=== PATIENT | female | born 1975 | race Caucasian/White ===

== ENCOUNTER 2020-01-24 17:39 | Emergency (ER) | payer OTHER, SELFPAY ==
[2020-01-24 17:53] VITALS: BP 121/64; PULSE 71; RESP 18; TEMP 36.2; O2SAT 97
--- NOTE | 2020-01-24 18:28 | ED.SKABFB ---
HPI - Skin/Abscess/Foreign Bdy General Chief complaint: Skin/Abscess/Foreign Body Stated complaint: Rash Time Seen by Provider: 01/24/20 18:11 Source: patient, RN notes reviewed and old records reviewed Mode of arrival: ambulatory Limitations: no limitations History of Present Illness HPI narrative: Patient presents today complaining of a rash to her upper back and posterior neck, extending to the scalp x2 weeks. States that rash itches and armstrong. Reports that it continues to worsen since onset. History of eczema and psoriasis. Was last seen at [facility] in February 2019 for similar symptoms. At that time she was given a course of prednisone, which she states did help. She has tried to get into a animal taxonomist, but does not have an appointment until the end of January. MD complaint: rash Related Data Home Medications Medication Instructions Recorded Confirmed valacyclovir [Valtrex] 1,000 mg PO DAILY 01/24/20 01/24/20 Allergies Allergy/AdvReac Type Severity Reaction Status Date / Time naproxen Allergy Mild shortness Verified 01/24/20 18:10 of breath Review of Systems Review of Systems: Narrative: CONSTITUTIONAL: Denies body aches, fever, chills, or sweats. EYES: Denies visual changes, redness, or discharge. ENT: Denies rhinorrhea, congestion, sore throat, or otalgia. CARDIOVASCULAR: Denies chest pain, palpitations, or edema. RESPIRATORY: Denies cough or dyspnea. GASTROINTESTINAL: Denies abdominal pain, nausea, vomiting, or diarrhea. GENITOURINARY: Denies dysuria or hematuria. SKIN: Denies wounds. + Pruritic rash MUSCULOSKELETAL: Denies back pain, joint pain, or myalgia. NEUROLOGIC: Denies headache, numbness, tingling, or weakness. PSYCH: Denies depression or anxiety. [facility] Past Medical History Medical History (Updated 01/24/20 @ 18:34 by Velvet Munoz, [employer] EN[employer]ISE ARCHITECT, ) Eczema Psoriasis Comments At time of signature, I have reviewed and agree with nursing past medical, surgical, social and family history unless otherwise noted. Please see nursing chart for further information. There is no relevant family history pertinent to the presenting complaint Exam Narrative: Exam Narrative: GENERAL: Well-appearing, well-nourished, and in no acute distress. HEAD: Normocephalic, atraumatic. EYES: EOMI. No redness or drainage. Conjunctivae normal. ENT: Mucous membranes pink and moist. NECK: Normal AROM. Large patches of erythematous maculopapular rash to posterior neck, occipital scalp, and bilateral upper back. No induration, crusting, drainage, or other signs of infection. CHEST: No respiratory distress. Clear to auscultation. HEART: Regular rate and rhythm. No murmur appreciated. Normal peripheral pulses. EXTREMITIES: Normal range of motion. No edema. SKIN: Warm, dry, no rash. Capillary refill normal. Normal skin turgor. NEURO: No focal deficits. Alert and oriented x3. Gait steady. PSYCH: Normal affect. No signs of depression or anxiety. Course Vital Signs Vital signs: Vital Signs Temperature 97.2 F L 01/24/20 17:53 Pulse Rate 71 01/24/20 17:53 Respiratory Rate 18 01/24/20 17:53 Blood Pressure 121/64 01/24/20 17:53 Pulse Oximetry 97 01/24/20 17:53 Temperature 97.2 F L 01/24/20 17:53 Pulse Rate 71 01/24/20 17:53 Respiratory Rate 18 01/24/20 17:53 Blood Pressure 121/64 01/24/20 17:53 Pulse Oximetry 97 01/24/20 17:53 Reviewed. Pt has been instructed to follow up with her PCP regarding her elevated blood pressure today. MDM - Skin/Abscess/Foreign Bdy Differential Diagnosis Differential diagnosis: Likely abscess of skin or subcutaneous tissue, dermatophytosis, urticaria, eczema, impetigo, contact dermatitis and other (Psoriasis) Critical Care Time Critical Care Time Critical Care Time: No Discharge Plan Discharge Clinical Impression: Eczema Qualifiers: Eczema type: unspecified Qualified Code(s): L30.9 - Dermatitis, unspecified Patient Disposition:
== END 2020-01-24 18:37 | disposition home or self-care (01) ==
PROVIDERS: Emergency Provider Nurse Practitioner
DX: L30.9 Dermatitis, unspecified (principal)
CPT/HCPCS: 99213; G0463

== ENCOUNTER 2022-02-06 19:03 | Emergency (ER) | payer OTHER, SELFPAY ==
[2022-02-06] VITALS (21 sets, daily range): BP systolic 107–160; BP diastolic 66–92; PULSE 72–89; RESP 14–25; TEMP 36.6; O2SAT 96–100
--- NOTE | ~2022-02-06 | XR_ITS ---
EXAMINATION: XR chest 2V DATE: 02/06/2022 19:31 INDICATION: Left chest pain. TECHNIQUE: Frontal and lateral views of the chest were obtained. COMPARISON: None. FINDINGS: The chest demonstrates clear lungs without pneumonia, pleural effusion, or pneumothorax. Th e heart size is normal. IMPRESSION: 1. No acute cardiopulmonary disease. Reviewed, dictated and finalized at location A.
--- NOTE | 2022-02-06 19:12 | ECG_ITS ---
Measurements Intervals [place] Rate: 79 P: 34 MA: 150 QRS: 17 QRSD: 90 T: 43 QT: 361 QTc: 414 Interpretive Statements SINUS RHYTHM NORMAL ECG NO PREVIOUS ECG AVAILABLE FOR COMPARISON Electronically Signed On 02-07-2022 10:03:11 CDT by Lrary Burnham D.O.
--- NOTE | 2022-02-06 19:22 | PC.NURSE ---
Patient taken to xray.
[2022-02-06 19:39] LABS: Basophils Percent Auto 0.3 % (0.2-1.2); Eosinophils Absolute Auto 0.2 K/mm3 (0-0.3); Eosinophils Percent Auto 2.1 % (0-4.4); Hematocrit 39.8 % (37.0-47.0); Hemoglobin 13.2 g/dL (12.0-15.0); Immature Granulocyte Absolute 0.02 K/mm3 (0.00-0.031); Immature Granulocyte Percent A 0.2 % (0-0.5); Lymphocytes Absolute Auto 3.54 K/mm3 (0.9-3.2); Lymphocytes Percent Auto 36.8 % (18.3-44.2); Mean Corpuscular HGB Conc 33.2 g/dl (32-36); Mean Corpuscular Hemoglobin 29.3 pg (26-34); Mean Corpuscular Volume 88.2 fl (80-100); Mean Platelet Volume 9.9 fl (7.4-10.4); Monocytes Absolute Auto 0.4 K/mm3 (0.1-0.6); Neutrophils Absolute Auto 5.5 K/mm3 (1.3-6.7); Neutrophils Percent Auto 56.6 % (45.5-73.1); Platelet Count Result 273 k/mm3 (150-375); Red Blood Count 4.51 M/mm3 (4.2-5.4); Red Cell Distribution Width 13.9 % (11.5-14.5); White Blood Count 9.6 K/mm3 (4.5-10.0)
[2022-02-06 19:48] LABS: Alanine Aminotransferase 19 U/L (6-35); Albumin Level 4.4 g/dL (3.5-5.1); Alkaline Phosphatase 91 U/L (38-126); Anion Gap 8 mmol/L (8-16); Aspartate Amino Transferase 24 U/L (14-36); Bilirubin,Total 0.5 mg/dL (0.2-1.3); Blood Urea Nitrogen 12 mg/dL (7-17); Calcium 9.9 mg/dL (8.4-10.2); Carbon Dioxide 31 mmol/L (22-30); Chloride 100 mmol/L (98-107); Estimated CRCL calculation 112 ml/min; Estimated Glomerular Filt Rate > 60; Glucose 91 mg/dL (65-110); Lipase 165 U/L (23-300); Potassium 3.7 mmol/L (3.4-5.0); Sodium 139 mmol/L (137-145)
--- NOTE | 2022-02-06 19:55 | ED.GENADULT ---
HPI - General Adult General Chief complaint: Chest Pain Stated complaint: chest tightness and sob for a few days Time Seen by Provider: 02/06/22 19:19 History of Present Illness HPI narrative: Patient is a 46-year-old female who presents to the emergency department with chief complaint of chest pain. The patient reports over the last several days she has had a tightness and fullness sensation in her chest. Patient states he is also noticed that whenever she is taking a breath that it does not feel as though she is getting a good deep breath. Patient states that she is also felt exhausted and tired and did have a couple episodes of some loose stool. Patient reports that several days ago she had a little blood in her stool as well. Related Data Home Medications Medication Instructions Recorded Confirmed valacyclovir 1 gram tablet 1,000 mg PO DAILY 01/24/20 01/24/20 (Valtrex) Allergies Allergy/AdvReac Type Severity Reaction Status Date / Time naproxen Allergy Mild shortness Verified 02/06/22 20:53 of breath Review of Systems Review of Systems: A 10 system review of systems was completed on the patient and is negative except for what is stated in the HPI. Nursing and ancillary documentation was reviewed. [facility], [facility] Past Medical History Medical History Eczema Psoriasis Exam Narrative: GENERAL: Well-appearing, well-nourished, and in no acute distress. HEAD: Normocephalic, atraumatic. EYES: PERRLA and EOMI. ENT: Nares clear, no rhinorrhea or epistaxis. Mucous membranes moist. NECK: Supple. CHEST: Clear to auscultation. No respiratory distress. HEART: Regular rate and rhythm. No murmur heard. Normal peripheral pulses. ABDOMEN: Soft, nontender, nondistended, normal active bowel sounds. EXTREMITIES: Normal range of motion. No edema. SKIN: Warm, dry, no rash. NEURO: No focal deficits. Alert and oriented x3. PSYCH: Normal mood and affect. Course Course Emergency Course: EKG is sinus rhythm rate of [address] elevation or ST depression Vital Signs Vital signs: Vital Signs Temperature 36.6 C 02/06/22 19:09 Pulse Rate 88 02/06/22 19:09 Respiratory Rate 14 02/06/22 19:09 Blood Pressure 143/92 H 02/06/22 19:09 Pulse Oximetry 100 02/06/22 19:09 Oxygen Delivery Room Air 02/06/22 19:09 Temperature 36.6 C 02/06/22 19:09 Pulse Rate 74 02/06/22 20:52 Respiratory Rate 14 02/06/22 20:52 Blood Pressure 125/76 02/06/22 20:52 Pulse Oximetry 100 02/06/22 20:52 Oxygen Delivery Room Air 02/06/22 19:20 Medical Decision Making Vital Signs Vital Signs: Vital Signs Temperature 36.6 C 02/06/22 19:09 Pulse Rate 88 02/06/22 19:09 Respiratory Rate 14 02/06/22 19:09 Blood Pressure 143/92 H 02/06/22 19:09 Pulse Oximetry 100 02/06/22 19:09 Oxygen Delivery Room Air 02/06/22 19:09 Temperature 36.6 C 02/06/22 19:09 Pulse Rate 74 02/06/22 20:52 Respiratory Rate 14 02/06/22 20:52 Blood Pressure 125/76 02/06/22 20:52 Pulse Oximetry 100 02/06/22 20:52 Oxygen Delivery Room Air 02/06/22 19:20 Lab Data Result diagrams: 02/06/22 19:33 02/06/22 19:33 Labs: Lab Results 02/06/22 02/06/22 02/06/22 Range/Units 19:33 19:33 19:33 WBC 9.6 (4.5-10.0) K/mm3 RBC 4.51 (4.2-5.4) M/mm3 Hgb 13.2 (12.0-15.0) g/dL Hct 39.8 (37.0-47.0) % MCV 88.2 (80-100) fl MCH 29.3 (26-34) pg MCHC 33.2 (32-36) g/dl RDW 13.9 (11.5-14.5) % Plt Count 273 (150-375) k/mm3 MPV 9.9 (7.4-10.4) fl Immature Gran % (Auto) 0.2 (0-0.5) % Neut % (Auto) 56.6 (45.5-73.1) % Lymph % (Auto) 36.8 (18.3-44.2) % Jennings % (Auto) 4.0 (2.6-8.5) % Eos % (Auto) 2.1 (0-4.4) % Baso % (Auto) 0.3 (0.2-1.2) % Lymph # (Auto) 3.54 H (0.9-3.2) K/mm3 Jennings # (Auto) 0.4 (0.1-0.6) K/mm3 Eos # (Auto) 0.2 (0-0.3)
[2022-02-06 19:56] LABS: Prothrombin Time 12.4 Seconds (11.1-14.7)
--- NOTE | 2022-02-06 19:56 | PC.NURSE ---
Called lab to add on BNP, spoke with Hansa.
[2022-02-06 19:59] LABS: Troponin I < 0.012 ng/mL (0.000-0.034)
[2022-02-06 20:19] LABS: NT Pro B Type Natriuretic Pept 14 pg/mL (5-100)
[2022-02-06 20:42] LABS: SARS-CoV-2 RNA PCR Negative
--- NOTE | 2022-02-06 21:20 | PC.NURSE ---
Per VORB per ERP, draw second trop at this time. ED track laborer in room drawing delta trop.
[2022-02-06 21:50] LABS: Troponin I < 0.012 ng/mL (0.000-0.034)
== END 2022-02-06 22:23 | disposition home or self-care (01) ==
PROVIDERS: Emergency Medicine; Emergency Provider Emergency Medicine
DX: R07.89 Other chest pain (principal); Z20.822 Contact with and (suspected) exposure to COVID-19
CPT/HCPCS: 36415; 71046; 80053; 83690; 83880; 84484; 85025; 85610; 85730; 93005; 99284; C9803; U0003; U0005

== ENCOUNTER 2022-09-18 18:05 | Emergency (ER) | payer OTHER, SELFPAY ==
[2022-09-18 18:21] VITALS: BP 139/83; PULSE 79; RESP 20; TEMP 36.7; O2SAT 100
--- NOTE | 2022-09-18 18:30 | ED.EAR ---
HPI - Ear Problem General Chief complaint: Ear Stated complaint: Left Ear Irritation Time Seen by Provider: 09/18/22 18:21 Source: patient and RN notes reviewed Mode of arrival: ambulatory Limitations: no limitations History of Present Illness HPI Narrative: Patient presents today complaining of a 2 day history of left ear pain that worsened since yesterday. Symptoms include itchiness and pain in the canal as well as swelling in the canal and decreased hearing. She reports pain increases with touching of the tragus. She currently rates her pain 6/10 and has been taking ibuprofen and Zyrtec without relief. Related Data Home Medications Medication Instructions Recorded Confirmed valacyclovir 1 gram tablet 1,000 mg PO DAILY 01/24/20 09/18/22 (Valtrex) Allergies Allergy/AdvReac Type Severity Reaction Status Date / Time naproxen Allergy Mild shortness Verified 09/18/22 18:20 of breath Review of Systems Review of Systems: CONSTITUTIONAL: Denies body aches, fever, chills, or sweats. EYES: Denies visual changes, redness, or discharge. ENT: Denies rhinorrhea, congestion, sore throat. + left ear pain CARDIOVASCULAR: Denies chest pain, palpitations, or edema. RESPIRATORY: Denies cough or dyspnea. GASTROINTESTINAL: Denies abdominal pain, nausea, vomiting, or diarrhea. GENITOURINARY: Denies dysuria or hematuria. SKIN: Denies rash, itching, or wounds. MUSCULOSKELETAL: Denies back pain, joint pain, or myalgia. NEUROLOGIC: Denies headache, numbness, tingling, or weakness. PSYCH: Denies depression or anxiety. [facility] Past Medical History Medical History Eczema Psoriasis Comments At time of signature, I have reviewed and agree with nursing past medical, surgical, social and family history unless otherwise noted. Please see nursing chart for further information. There is no relevant family history pertinent to the presenting complaint Exam Narrative: GENERAL: Well-appearing, well-nourished, and in no acute distress. HEAD: Normocephalic, atraumatic. EYES: EOMI. No redness or drainage. Conjunctivae normal. ENT: Mucous membranes pink and moist. TMs normal bilaterally. Moderate swelling of the left ear canal with tragal tenderness. No movement tenderness. She has some eczema patches pre and postauricular, which is baseline for her. NECK: Normal AROM. CHEST: No respiratory distress. EXTREMITIES: Normal range of motion. No edema. SKIN: Warm, dry, no rash. Capillary refill normal. Normal skin turgor. NEURO: No focal deficits. Alert and oriented x3. Gait steady. PSYCH: Normal affect. No signs of depression or anxiety. Course Course Level of Care: Express Care Visit Vital Signs Vital signs: Vital Signs Temperature 98.1 F 09/18/22 18:21 Pulse Rate 79 09/18/22 18:21 Respiratory Rate 20 09/18/22 18:21 Blood Pressure 139/83 09/18/22 18:21 Pulse Oximetry 100 09/18/22 18:21 Oxygen Delivery Room Air 09/18/22 18:21 Temperature 98.1 F 09/18/22 18:21 Pulse Rate 79 09/18/22 18:21 Respiratory Rate 20 09/18/22 18:21 Blood Pressure 139/83 09/18/22 18:21 Pulse Oximetry 100 09/18/22 18:21 Oxygen Delivery Room Air 09/18/22 18:21 Reviewed. Pt has been instructed to follow up with her PCP regarding her elevated blood pressure today. Medical Decision Making MDM Narrative Medical decision making narrative: Symptoms and exam consistent with otitis externa. Prescription for Ciprodex sent to pharmacy. Anticipatory guidance given. Differential Diagnosis Differential Diagnosis: Otitis media, otitis externa, ruptured TM, serous otitis, eustachian tube dysfunction, cerumen impaction Vital Signs Vital Signs: Vital Signs Temperature 98.1 F 09/18/22 18:21 Pulse Rate 79 09/18/22 18:21 Respiratory Rate 20 09/18/22 18:21 Blood Pressure 139/83 09/18/22 18:21 Pulse Oximetry 100 09/18/22 18:21
== END 2022-09-18 18:31 | disposition home or self-care (01) ==
PROVIDERS: Emergency Provider Nurse Practitioner
DX: H60.92 Unspecified otitis externa, left ear (principal); L40.9 Psoriasis, unspecified
CPT/HCPCS: 99213; G0463

== ENCOUNTER 2022-09-29 12:33 | Emergency (ER) | payer OTHER, SELFPAY ==
--- NOTE | 2022-09-29 12:44 | ED.URI ---
HPI - URI/Sore Throat General Chief Complaint: Upper Respiratory Infection Stated Complaint: congestion Time Seen by Provider: 09/29/22 12:49 History of Present Illness HPI Narrative: 47-year-old female presented for complaint of sore throat, sinus congestion and pressure worsening over the past 3 days. Endorses cough is productive at times. She has been taking [id number] medication without relief. Also states she took 1 dose of antihistamine without any change in symptoms. She denies shortness of breath, wheezing, nausea, vomiting, fevers or chills. Denies sick contacts. Related Data Home Medications Medication Instructions Recorded Confirmed valacyclovir 1 gram tablet 1,000 mg PO DAILY 09/29/22 09/29/22 Allergies Allergy/AdvReac Type Severity Reaction Status Date / Time naproxen AdvReac Intermediate shortness Verified 09/29/22 12:39 of breath Review of Systems Review of Systems: CONSTITUTIONAL: Denies body aches, fever, chills, or sweats. EYES: Denies visual changes, redness, or discharge. ENT: Reports rhinorrhea, congestion, sore throat CARDIOVASCULAR: Denies chest pain, palpitations, or edema. RESPIRATORY: Denies dyspnea. GASTROINTESTINAL: Denies abdominal pain, nausea, vomiting, or diarrhea. SKIN: Denies rash, itching, or wounds. MUSCULOSKELETAL: Denies back pain, joint pain, or myalgia. [facility] Past Medical History Medical History Eczema Psoriasis Exam Narrative: GENERAL: Mildly ill-appearing, no acute distress. EYES: conjunctivae clear ENT: Mucous membranes moist. Nasal congestion. TM pearly rios with normal light reflex bilaterally; no tragal tenderness. Oropharynx erythematous without lesions. Tonsils without swelling or exudate. No drooling, no hoarseness, no trismus, uvula midline. No tripod positioning, hot potato voice, or soft palate swelling. NECK: Supple. No lymphadenopathy CHEST: Clear to auscultation, breath sounds equal. HEART: Regular rate and rhythm. No murmur heard. SKIN: Warm, dry, no rash. NEURO: Alert and oriented x3. Course Course Emergency Course: Patient is aware of diagnosis, understands and agrees to treatment plan. Anticipatory guidance given. Patient agrees to follow-up as directed and is aware of reasons to seek care at the emergency department. Portions of this record may have been created with voice recognition software Level of Care: Express Care Visit MDM - URI/Sore Throat MDM Narrative Medical decision making narrative: strep result reviewed with pt. Advised supportive treatments. Patient is appropriate for outpatient treatment and follow-up. Differential Diagnosis Differential diagnosis: Likely upper respiratory infection, viral infection and pharyngitis Discharge Plan Discharge Clinical Impression: Allergic rhinitis Patient Disposition: Home, Self-Care Condition: Stable Instructions: Upper Respiratory Infection (ED) Additional Instructions: Rapid strep swab was negative today You will be notified in a few days if the culture comes back positive for strep, and appropriate antibiotics will be called in at that time. if symptoms are due to a viral illness, it is not treated with antibiotics. Viral symptoms can be present for up to 10-14 days. Recommend Flonase spray and Zyrtec for sinus congestion Cough syrup may cause drowsiness; avoid driving or take it at night time. Tylenol every 8 hours as needed for pain/fever Soft foods, cool liquids, warm tea. Gargle with warm saltwater twice a day. Chloraseptic spray and throat lozenges. Rest and stay hydrated. Humidified air. --Follow up with your PCP --Go to the ER immediately if you cannot swallow your saliva, trouble breathing/wheezing, throat swelling, pain is persistent and severe Prescriptions: No Action valacyclovir 1 gram tablet 1,000 mg PO DAILY Follow-up/Referrals: PHYSICIAN,ON SHERRELL
[2022-09-29 12:47] VITALS: BP 110/72; PULSE 88; RESP 16; TEMP 35.9; O2SAT 97
== END 2022-09-29 13:12 | disposition home or self-care (01) ==
PROVIDERS: Emergency Provider Nurse Practitioner Family
DX: J30.9 Allergic rhinitis, unspecified (principal)
CPT/HCPCS: 87081; 87880; 99213; G0463

== ENCOUNTER 2024-09-21 16:54 | Emergency (ER) | payer OTHER, SELFPAY ==
--- OUTSIDE RECORDS SUMMARY | 2024-09-21 16:58 | XMS_ITS | Encounter Summary ---
Author Organization [facility] Address [address] [place] [id number] Care Team Providers Care Spring Forger Name Role Phone None, Provider Primary Care Provider Charmaine Steel NP Primary Care Provider [phone] Encounter Details Date Type Department Care Team (Late st Contact Info) Description 09/04/[address] [facility] CONVERSION [id number] [place] [address] , Generic Conversion, Social History Tobacco Use Types Packs/Day Years Used Date Smoking Tobacco: Never Assessed Comments Unknown Sex and Gender Information Value Date Recorded Sex Assigned at Not on file Legal Sex Female 8:24 PM CDT Gender Identity Not on file Sexual Orientation Not on file documented as of this encounter Plan of Treatment Not on file documented as of this encounter Visit Diagnoses Not on filedocumented in this encounter Care Teams Spring Forger Relationship Specialty Start Date End Date None, Provider, PCP - General 02/04/19 07/24/20 Charmaine Cyr, TONY [address] [place] [address] PCP - General NURSE PRACTITIONER 07/25/20 documented as of this encounter
--- OUTSIDE RECORDS SUMMARY | 2024-09-21 16:58 | XMS_ITS | Data Portability ---
Author Organization [facility] [place] Address [address] [place] [address] Assessment No assessment recorded. Plan of Treatment Reminders Order Date Submit Date Provider Last Modified By Organization Details Last Modified Time Details Appointments None recorded. Lab None recorded. Referral None recorded. Procedures None recorded. Surgeries None recorded. Imaging None recorded. Medication Orders fluconazole 150 mg tablet [address] [facility] [address] [place], [address], 13:08:13 nystatin-tr iamcinolone 100,000 unit/gram-0 .1 % topical ointment [address] [facility] [address] [place], [address], 13:08:33 Patient TargetsNo targets recorded. Patient InstructionsNo instructions recorded. Reason for Referral None Reported. Results Created Date Observation Date Name Description Value Unit Range Abnormal Flag Note LastModifiedBy Organization Detail LastModifiedTime 01/05/2001/05/2024 VAGIN ITIS/ VAGIN OSIS, DNA PROBE timothy sp. detection, direct probe Negati ve negati ve Not Available [facility] (Lab) [address], [place], [address], 01/06/2024 13:10:17 01/05/20 24 01/05/2024 VAGIN ITIS/ VAGIN OSIS, DNA PROBE gardnerella vag. detection, direct probe Negati ve negati ve Not Available [facility] (Lab) [address] [facility], [place], [address], 01/06/2024 13:10:17 01/05/20 24 01/05/2024 VAGIN ITIS/ VAGIN OSIS, DNA PROBE trichomonas vag. detection, direct probe Negati ve negati ve Not Available [facility] (Lab) [address] [facility], [place], [address], 01/06/2024 13:10:17 01/05/20 24 01/05/2024 CT/GC AND TRICH OMONA S VAGIN DENNY (RRNA ), SWAB chlamydia trachomatis, PCR Negati ve negati ve Not Available [facility] (Lab) [address] [facility], [place], [address], 01/06/2024 13:10:17 01/05/20 24 01/05/2024 CT/GC AND TRICH OMONA S VAGIN DENNY (RRNA ), SWAB neisseria gonorrhoeae, PCR Negati ve negati ve Not Available [facility] (Lab) [address] [facility], [place], [address], 01/06/2024 13:10:17 01/05/20 24 01/05/2024 CT/GC AND TRICH OMONA S VAGIN DENNY (RRNA ), SWAB trichomonas vaginalis ribosomal RNA (rrna) Negati ve negati ve Not Available [facility] (Lab) [address] [facility], [place], [address], 01/06/2024 13:10:17 Result Notes None recorded. Procedures Surgical History Date Name Laterality Status Provider Name and Address Organization Details Recorded Time 09/09/19 24 Date of Last Mammogram completed Irma Miles [facility] 03/07/2024 12:20:41 05/24/19 19 Hysteroscopy completed [facility] 01/05/2024 17:20:53 05/24/18 80 hernia repair completed [facility] 01/05/2024 17:20:41 Imaging Results None recorded. Procedure Notes None recorded. Medical Equipment None Reported. Allergies Allergen ID Allergen Name Allergen Category Reaction Reaction Severity Criticality Documentation Date Start Date Code Code System Note Provider Name and Address Organization Details Recorded Time 74506 Non-stero idal anti-infl ammatory agent (product) medicatio n respirato ry distress moderate Not available 01/05/2024 57484 005 SNOMED Emerita Arechiga [facility] 17:13:27 Medications Name Sig Start Date Stop Date Status Note LastModified by Organization Details LastModified Time atorvastati n 20 mg tablet TAKE 1 TABLET BY MOUTH NIGHTLY AT BEDTIME active Not Available Not Available No t Available fluconazole 150 mg tablet TAKE ONE TABLET BY MOUTH NOW AND THEN REPEAT DOSE IN 72 HOURS 02/27 completed Not Available Not Available Not Available valacyclovi r 1 gram tablet TAKE 1 TABLET BY MOUTH ONCE DAILY active Not Available Not Available No t Available nystatin-tr iamcinolone 100,000 unit/gram-0 .1 % topical ointment APPLY TO THE AFFECTED AREA(S) TWICE DAILY FOR 7 DAYS 02/27 completed Not Available Not Available Not Available omeprazole 20 mg capsule,del ayed release TAKE 1 CAPSULE BY MOUTH ONCE DAILY active Not Available Not Available No t Available epinephrine 0.3 mg/0.3 mL injection, auto-inject or USE DIRECTED active Not Available Not Available No t Available atorvastati n 01/04 completed Not Available Not Available Not Available omeprazole 01/04 completed Not Available Not Available Not Available cholecalcif twan (vitamin D3) 1,250 mcg (50,000 unit) capsule TAKE 1 CAPSULE BY MOUTH ONCE A WEEK active Not Available Not Available No t Available sodium,pota ssium,mag sulfates 17.5 gram-3.13 gram-1.6 gram oral soln TAKE 177ML BY MOUTH EVERY 12 HOURS FOR ONE DAY. TAKE DIRECTED IN THE INSTRUCTI ONS 02/27 completed Not Available Not Available Not Available Vitals Date Recorded Body weight Body mass index (BMI) Body height Systolic blood pressure Diastolic blood pressure Provider Name and Address Organization Details Last Updated DateTime 01/05/2024 35620.73 g 37.6 kg/m2 162.56 cm 117 mm[Hg] 74 mm[Hg] Emerita Arechiga [facility] 17:13:18 Social History Question Answer Notes LastModified by Organizat ion Details LastModified Time Tobacco Smoking Status Never Smoker Emerita Arechiga null, [facility] 01/05/2024 17:20:15 What Is Your Level Of Alcohol Consumption? Occasional Information not available 01/05/2024 In The 14 Days Before Symptom Onset, Have You Had Close Contact With A Laboratory-confirm ed COVID-19 While That Case Was Ill? No Information n ot available 01/05/2024 In The 14 Days Before Symptom Onset, Have You Had Close Contact With A Person Who Is Under Investigation For COVID-19 While That Person Was Ill? No Information not available 01/05/2024 Have You Been To An Area Known To Be High Risk For COVID-19? No Information not available 01/05/2024 Sex: Unknown Functional Status None recorded. Mental Status None recorded. Family History Relationship Description Onset Age of this Age Resolved Age Notes LastModified by Organization Details LastModified Time Mother Asthma Not available 0 01/05/2024 17:24:54 Mother Malignant tumor of cervix Not available 2023 17:25:09 Mother Diabetes mellitus Not available 2023 17:25:18 Mother Hypercholest erolemia Not available 2023 17:25:31 Mother Mental disorder Not available 2023 17:25:59 Father Heart disease Not available 2023 17:26:10 Father Hepatoptosis Not avail able 01/05/2024 17:26:52 Father Hypercholest erolemia Not available 2023 17:26:58 Father Hypertensive disorder Not available 2023 17:27:07 Father Mental disorder Not available 2023 17:27:22 Sister Mental disorder Not available 2023 17:27:26 Sister Asthma Not available 0 01/05/2024 17:27:35 Sister Cyst of ovary [email or web address] Not available 2023 17:28:00 Sister Malignant neoplasm of ovary [email or web address] Not available 2023 17:28:13 Medical History Condition Response Anxiety Disorder Y Anemia Y High Cholesterol Y Depression/ depression Y History of STI Y Psychiatric Illness Y Gynecological History Statement/Question Response Abnormal Pap Y Date of Last Mammogram 09/09/2023 Date of LMP 09/21/2018 On BCP's at Conception? N STIs/STDs Y HPV Vaccine N Colposcopy Current Control Method Abstinence Date of Last Colonoscopy Sexually Active? N Date of DEXA bone scan Age of first menstrual cycle 12 Date of Last Pap Smear Sexual Problems? N Obstetrics History GPAL:G 2 P 0 0 0 2 Type Value Living 2 Total 2 Past Encounters Encounter ID Performer Location Encounter Start Date Encounter Closed Date Diagnosis/Indication Diagnosis SNOMED-CT Code Diagnosis ICD10 Code Diagnosis Note [id number] [facility] [address] [address] 01/05/2024 16:51:38 01/05/2024 17:49:57 Vaginitis 17446810 N76.0 vaginitis panel sentgc/ct/ trich testing sentvulvar care guidelines discussed (d/c use of scented soaps/prod ucts/wipes )rx sent for yeast, r/b/a reviewedqu estions answeredRT C for WWE Time spent in visit is a total of 20 mins with at least 50% of visit consisting of counseling and review of plan of care. Vulval irritation 641334 003 N90.89 Venereal d isease screening 182912922 Z11.3 Health Concerns Section Related Observation LastModified by Organization Detai ls LastModified Time None Recorded Concern Status LastModified by Organization Details LastModified Time None Recorded Advance Directives Directive None Recorded Payers Encounter Date Sequence Insurance Name Policy Number Policy Guevara Covered Member ID Guevara Member ID Guarantor Name 01/05/2024 1 [facility] [id number] Comfort Rodriguez [id number] Comfort Rodriguez Notes Date Note Type Note Provider Name and Address Organization Details Recorded Time 01/05/2024 text/html 48yopresents for evaluation of vulvar itching/irritati onsymptoms present x 1 monthitching/red ness uses baby wipes and scented products postmenopausalno t SA x 1 yr h/o HSV [place] Burgos [address], [place], [address], [place] [facility] 01/05/2024 17:44:57 OBGyn Episode Ob Episode Information Episode Created Date Number of Fetuses Patient Bloodtype Patient rh Status Prepregnancy Weight lbs Domestic Partner Domestic Partner Phone Father Name Test Lead Application Testing Status 01/05/20 24 1 CLOSED Fetus Data First Name Last Name Admitted to NICU Weight (g) Sex Living Outcome Pediatric Complications Fetus ID Race Codes Race Delivery Type F Full Term [id number] Vaginal Delivery Heber Calculation Initial Heber Date Initial Exam Date Initial Exam Provider Initial Ultrasound Date Last Menstrual Period Date Ultra Sound Weeks Gestation 0 Eighteen To Twenty Week Heber Update Ultra Sound Date Fundal Height At Umbil Quickening Date Ultra Sound Latest Weeks Gestation Final Heber Confirmed By Final Heber Confirmed Date Final Heber Date Ultra Sound Latest Days Gestation 0 0 Menstrual History Last Menstrual Date Menses Monthly On Bcp Conception Prior Menses Frequency Hcg Plus Date Menarche Onset Age Delivery Information Delivery Date Delivery Type Labor Anesthesia Weeks Gestation Incision Type Labor Labor Length Hrs Delivered By Post Complications Tubal Sterilization Discharge Date Comments 4 Discharge Information Feeding Method Contraceptive Method Maternal HG B and HCT Levels Ob Episode Information Episode Created Date Number of Fetuses Patient Bloodtype Patient rh Status Prepregnancy Weight lbs Domestic Partner Domestic Partner Phone Father Name Test Lead Application Testing Status 01/05/20 24 1 CLOSED Fetus Data First Name Last Name Admitted to NICU Weight (g) Sex Living Outcome Pediatric Complications Fetus ID Race Codes Race Delivery Type M Full Term [id number] Vaginal Delivery Heber Calculation Initial Heber Date Initial Exam Date Initial Exam Provider Initial Ultrasound Date Last Menstrual Period Date Ultra Sound Weeks Gestation 0 Eighteen To Twenty Week Heber Update Ultra Sound Date Fundal Height At Umbil Quickening Date Ultra Sound Latest Weeks Gestation Final Heber Confirmed By Final Heber Confirmed Date Final Heber Date Ultra Sound Latest Days Gestation 0 0 Menstrual History Last Menstrual Date Menses Monthly On Bcp Conception Prior Menses Frequency Hcg Plus Date Menarche Onset Age Delivery Information Delivery Date Delivery Type Labor Anesthesia Weeks Gestation Incision Type Labor Labor Length Hrs Delivered By Post Complications Tubal Sterilization Discharge Date Comments 9 Discharge Information Feeding Method Contraceptive Method Maternal HG B and HCT Levels
--- OUTSIDE RECORDS SUMMARY | 2024-09-21 16:58 | XMS_ITS | Clinical Summary ---
Author Organization [facility] Address [address] [place] [address] Care Team Providers Care Trolley Worker Name Role Phone Charmaine Cyr DUST BRUSH ASSEMBLER Primary Care Provider [phone] Allergies Active Allergy Reactions Criticality Noted Date Comments Naproxen Shortness of Breath High 02/04/2019 Nuts Other (see comment) 08/20/2023 Tingling in lips and scratchy throat Medications EPINEPHrine (EPIPEN 2-FÁTIMA) 0.3 MG/0.3ML injectionIndicat ions:Peanut allergy Inject 0.3 mLs (0.3 mg total) into the muscle as needed for Anaphylaxis. 1 each 08/20/2023 Active valACYclovir (VALTREX) 1 g tabletIndication s:Genital herpes simplex, unspecified site Take 1 tablet by mouth once daily 90 tablet 05/31/2024 Active atorvastatin (LIPITOR) 20 MG tabletIndication s:Hypertriglycer idemia TAKE 1 TABLET BY MOUTH NIGHTLY AT BEDTIME 90 tablet 07/12/2024 Active omeprazole (PRILOSEC) 20 MG capsuleIndicatio ns:Gastroesophag eal reflux disease, unspecified whether esophagitis present Take 1 capsule by mouth once daily 90 capsule 07/12/2024 Active Active Problems Problem Noted Date Diagnosed Date Family hx of colon cancer 10/08/2023 Change in bowel habit 10/08/2023 Gastroesophageal reflux dise ase, unspecified whether esophagitis present 08/20/2023 Peanut allergy 08/20/2023 Chronic bilateral low back pain with bilateral s ciatica 08/09/2023 Abdominal bloating 08/09/2023 Urge incontinence 08/09/2023 Hx of iron deficiency anemia 08/09/2023 Vitamin D deficiency 08/24/2020 Hypertriglyceridemia 08/24/2020 Dermatitis 07/31/2020 Fatigue 12/08/2016 Depression 07/31/2015 Numbness and tingling 07/31/2015 Resolved Problems Problem Noted Date Diagnosed Date Resolved Date Hot flashes 07/31/2020 08/24/2020 Immunizations Immunization Administration Dates Next Due PFIZER COVID-19 (ORIGINAL FO RMULATION, PURPLE CAP) mRNA, LNP-S, PF, 30 MCG/0.3 ML DOSE 06/09/2021,08/22/2020,08/01/2020 Family History Medical History Relation Comments COPD Father Cancer Father Prostate & bladd er Heart Disease Father Hypertension Father Breast Cancer Maternal Aunt Cancer Maternal Aunt Breast, bone & l anupam cancer suicide Maternal Grandfather Breast Cancer Maternal Grandmother Cancer Maternal Grandmother Breast & reyna ng Stroke Maternal Grandmother Asthma Mother Cancer Mother Cervical cancer Depression Mother Diabetes Mother Kidney Disease Mother Mental Health Mother Psychiatry Mother Cancer Paternal Aunt Breast Cancer Paternal Grandfather Prostate Heart Disease Paternal Grandfather Stroke Paternal Grandfather Cancer Paternal Grandmother Colon Colon Cancer Paternal Grandmother Depression Sister Depression Son Relation Status Comments Father Maternal Aunt Maternal Grandfather Maternal Grandmother Mother Paternal Aunt Paternal Grandfather Paternal Grandmother Sister Son Social History Tobacco Use Types Packs/Day Years Used Date Smoking Tobacco: Never Passive Smoke Exposure: Past Smokeless Tobacco: Never Tobacco Cessation:Counseling Given: No Comments:Grew up in house full of smokers but never smoked Alcohol Use Standard Drinks/Week Comments Not Currently 0 (1 standard drink = 0.6 oz pure alcohol) Only social drinker maybe a couplle times a month PHQ-2 Answer Date Recorded Patient Health Questionnaire-2 Score 0 10/08/2023 Comments No Sex and Gender Information Value Date Recorded Sex Assigned at Not on file Legal Sex Female 8:24 PM CDT Gender Identity Not on file Sexual Orientation Not on file Last Filed Vital Signs Vital Sign Reading Time Taken Comments Blood Pressure 122/63 12/01/2023 10:30 AM CDT Pulse 55 12/01/2023 10:15 AM CDT Temperature 36.9 C (98.4 F) 12/01/2023 9:09 AM CDT Respiratory Rate 16 12/01/2023 10:30 AM CDT Oxygen Saturation 98% 12/01/2023 10:30 AM CDT Inhaled Oxygen Concentration - - Weight 97.5 kg (215 lb) 12/01/2023 9:09 AM CDT Height 160 cm (5' 3 ) 12/01/2023 9:09 AM CDT Body Mass Index 38.09 12/01/2023 9:09 AM CDT Plan of Treatment Health Maintenance Due Date Last Done Comments Cervical Cancer Screening Pa p Smear (Age 30 to 64) Every 3 Years 1973 DTaP, Tdap and Td Vaccines ( 1 - Tdap) 02/23/1992 Hepatitis B Vaccines (1 of 3 - 19+ 3-dose series) 02/23/1992 Cervical Cancer Screening Pa p with HPV Testing (Age 30 to 64) Every 5 Years 2003 Cervical Cancer Screening wi th HPV 2003 Pneumococcal Vaccine: 50+ Years (1 of 1 - PCV) 2023 Zoster Vaccines (1 of 2) 2023 COVID-19 Vaccine (4 - 2023-2 5 season) 2024 06/09/2021, 08/22/2020, 08/01/2020 PHQ-2 (Physician Pokagon) 05/24/2024 10/08/2023 Annual Physical 08/08/2024 08/09/2023, 07/30/2020, 07/30/2020 Mammogram Screening 08/19/2025 08/20/2023 Colorectal Cancer Screening Colonoscopy (10 Years) 11/30/2033 12/01/2023 Hepatitis C Completed 08/08/2020 Meningococcal B Vaccine Aged Out No l onger eligible based on patient's age to complete this topic Meningococcal Vaccine Aged Out No zulay marv eligible based on patient's age to complete this topic RSV Immunizations Under 20 Months Aged Out No longer eligible b ased on patient's age to complete this topic Medical Devices Implanted Type Area Rivet Spinner Device Identifier Shelf Expiration Date Model / Serial / Lot Clip Hemostatic Endoscopic Instinct Plus - [id number] Implanted:Qty: 2 on 12/01/2023 by Dick Saenz MD at [facility] Clip Implant N/A: Colon [employer] 10/14/2025 [id number] / / [id number] Clip Hemostatic Endoscopic Instinct Plus - [id number] Implanted:Qty: 1 on 12/01/2023 by Dick Saenz MD at [facility] Clip Implant N/A: Colon [employer] - [employer] 10/20/2025 [id number] / / [id number] Procedures Procedure Name Priority Date/Time Associated Diagnosis Comments MG SCREENING W JENNIFER LUIS DIGI Routine 08/20/2023 9:49 AM CDT Encounter for screening mammogram for malignant neoplasm of breast HEPATITIS C ANTIBODY W/RFX TO HCV RNA Routine 08/08/2020 10:47 AM CDT from Last 3 Months or Most Recently Relevant to Health Maintenance Results * MG SCREENING W JENNIFER LUIS DIGI (08/20/2023 9:49 AM CDT) Anatomical Region Laterality Modality Breast Bilateral Mammography 09/09/2023 4:10 PM CDT Impressions 09/09/2023 4:14 PM CDT IMPRESSION: No suspicious mammographic findings. Recommendation: 1. Routine Screening, Bilateral Assessment: ACR BI-RADS 2 - BENIGN FINDING(S) Ordered By: CHARMAINE CYR Interpreted By: Regino Alvarez MD, 09/09/2023 4:10 PM Narrative 09/09/2023 4:14 PM CDT Examination: Screening bilateral mammogram Exam Date: 08/20/2023 9:30 AM Clinical history: Routine screening. Family history of breast cancer in her grandmother and aunt. Comparison: 06/27/2018 Technique: Digital screening mammography of both breasts was performed. Breast tomosynthesis acquisitions were obtained and reviewed. This study was read with the assistance of a computer-aided detection system. Tissue density: There are scattered areas of fibroglandular density. Findings: The breast parenchymal findings are stable. No suspicious masses, malignant appearing calcifications, skin thickening or other abnormalities are present. No significant change from the prior exam. us Charmaine Cyr DUST BRUSH ASSEMBLER MAMMO Final Res ult * HEPATITIS C ANTIBODY W/RFX TO HCV RNA (08/08/2020 10:47 AM CDT) HEPATITIS C AB NON-REACTI VE NON-REACT TIFFANY [facility] SIGNAL TO CUTOFF 0.01 <[address] [facility] Comment: HCV antibody was non-reactive. There is no laboratory evidence of HCV infection. In most cases, no further action is required. However, if recent HCV exposure is suspected, a test for HCV RNA (test code 53972) is suggested. For additional information please refer to http://education.[employer]/faq/LTN45n8 (This link is being provided for informational/ educational purposes only.) 08/08/2020 10:4 7 AM CDT 08/08/2020 10:50 AM CDT Charmaine Cyr DUST BRUSH ASSEMBLER LABORATORY Final Res ult [facility] [address] [place] [address] from Last 3 Months or Most Recently Relevant to Health Maintenance Insurance R Care Teams Trolley Worker Relationship Specialty Start Date End Date Charmaine Cyr NP [address] [place], [place] [id number] PCP - General NURSE PRACTITIONER 07/25/20
--- OUTSIDE RECORDS SUMMARY | 2024-09-21 16:58 | XMS_ITS | Encounter Summary ---
Author Organization [facility] Address [address] [place] [address] Care Team Providers Care Manager Of Network Name Role Phone Charmaine Cyr ROOFING MACHINE OPERATOR Primary Care Provider [phone] Encounter Details Date Type Department Care Team (Late st Contact Info) Description 10/22/2023 [employer] Message Enc [facility] Family [facility] [address] [facility] [address] [place] [phone] Charmaine Cyr NP [address] [place], [place] [id number] Follow up lumbar MRI Social History Tobacco Use Types Packs/Day Years Used Date Smoking Tobacco: Never Passive Smoke Exposure: Past Smokeless Tobacco: Never Comments:Grew up in house fu ll of smokers but never smoked Alcohol Use Standard Drinks/Week Comments Yes 0 (1 standard drink = 0.6 oz [...] Diagnoses Not on filedocumented in this encounter Additional Health Concerns Assessment Noted Time PHQ-9 Depression Total Score: 14 024 8:51 AM CDT documented as of this encounter Care Teams Manager Of Network Relationship Specialty Start Date End Date Charmaine Cyr NP [address] [place] [address] PCP - General NURSE PRACTITIONER 07/25/20 documented as of this encounter
--- OUTSIDE RECORDS SUMMARY | 2024-09-21 16:58 | XMS_ITS | Clinical Summary ---
Author Organization [email or web address] Address [address] [place] [address] Care Team Providers Care [employer] Umpire Name Role Phone Unavailable Primary Care Provider Unavailabl e Source Comments [email or web address],non-owned Affiliates and Associated Physician Practices is amultiple site organization consisting of ambulatory clinics and hospital sitesin [place], [place], [place] and [place]. This disclosure is being madepursuant to the Care Everywhere program and may not contain all information available regarding this patient. Last updated 18[email or web address] Allergies Active Allergy Reactions Criticality Noted Date Comments Naproxen Shortness of Breath, Nausea and/or Vomiting High 01/07/2010 Medications * Be aware that medications may not be up to date on this document. Alwaysverify current medications with the patient. ondansetron (ZOFRAN) 4 MG tablet Take 1 Tab by mouth every 4 hours as needed for Nausea/Vomi ting. 10 Tab 0 11/16/2011 Active Active Problems Problem Noted Date Diagnosed Date Abdominal pain, right lower quadrant 11/16/2011 Family History Medical History Relation Name Comments Cancer - Prostate Father Hypercholesterolemia Father Hypertension Father Hypertension Maternal Grandfather Arthritis Maternal Grandmother Asthma Maternal Grandmother Cancer Maternal Grandmother Hypertension Maternal Grandmother Stroke Maternal Grandmother Arthritis Mother Asthma Mother Cancer Mother Cervical Hypercholesterolemia Mother Kidney Stones Mother CAD (Coronary Artery Disease) Paternal Grandfather Cancer - Prostate Paternal Grandfather Diabetes Paternal Grandfather Stroke Paternal Grandfather Hypercholesterolemia Paternal Grandmother Hypertension Paternal Grandmother Relation Name Status Comments Father Maternal Grandfather Maternal Grandmother Mother Paternal Grandfather Paternal Grandmother Social History Tobacco Use Types Packs/Day Years Used Date Smoking Tobacco: Never Alcohol Use Standard Drinks/Week Comments No 0 (1 standard drink = 0.6 oz pur e alcohol) Comments Unknown Sex and Gender Information Value Date Recorded Sex Assigned at Not on file Legal Sex Female 4:57 AM HOSPITALITY COORDINATOR Gender Identity Not on file Sexual Orientation Not on file Last Filed Vital Signs Vital Sign Reading Time Taken Comments Blood Pressure 137/89 11/16/2011 3:12 PM CDT Pulse 84 11/16/2011 3:12 PM CDT Temperature 37.1 C (98.8 F) 11/16/2011 8:48 AM CDT Respiratory Rate 19 11/16/2011 3:12 PM CDT Oxygen Saturation 99% 11/16/2011 3:12 PM CDT Inhaled Oxygen Concentration - - Weight 93 kg (205 lb) 11/16/2011 8:48 AM CDT Height 162.6 cm (5' 4 ) 11/16/2011 8:48 AM CDT Body Mass Index 35.19 11/16/2011 8:48 AM CDT Plan of Treatment Health Maintenance Due Date Last Done Comments COLOGUARD (AGES 45-75) - COL ON CA SCREENING 1973 COLON MONITORING 1973 COLONOSCOPY - COLON CA SCREENING 1973 CT COLONOGRAPHY - COLON CA SCREENING 1973 Colorectal Cancer Screening 1973 FIT - COLON CA SCREENING 1973 FLEX SIG - COLON CA SCREENING 1973 LIPID TESTING 1973 MAMMOGRAM 1973 HIV SCREENING 02/23/1988 HEPATITIS C SCREENING 02/18/1991 DTAP/TDAP/TD VACCINES (1 - Tdap) 02/23/1992 HEPATITIS B VACCINE (1 of 3 - 19+ 3-dose series) 02/23/1992 PNEUMOCOCCAL VACCINE 50+ (1 of 1 - PCV) 2023 ZOSTER VACCINE (1 of 2) 2023 COVID-19 VACCINE (1 - 2023-2 5 season) 2024 DEPRESSION SCREENING 05/24/2024 INFLUENZA VACCINE (Season Ended) 2025 HIB VACCINE Aged Out No longer eligi ble based on patient's age to complete this topic HPV VACCINE Aged Out No longer eligi ble based on patient's age to complete this topic MENINGOCOCCAL (Group B) VACC INE SHARED DECISION-MAKING Aged Out No longer eligibl e based on patient's age to complete this topic MENINGOCOCCAL GROUPS A/C/Y/W VACCINE Aged Out No longer eligible b ased on patient's age to complete this topic
--- OUTSIDE RECORDS SUMMARY | 2024-09-21 16:58 | XMS_ITS | Encounter Summary ---
Author Organization [facility] Address [address] [place] [address] Care Team Providers Care Chocolate Packer Name Role Phone Charmaine Cyr PRECAST MOLDER Primary Care Provider [phone] Encounter Details Date Type Department Care Team (Late st Contact Info) Description 08/24/2023 [employer] Message Enc [facility] Family Medicine [facility] [address] [place] [address] [place], [facility] Provider Referral center phone number Social History Tobacco Use Types Packs/Day Years Used Date Smoking Tobacco: Never Passive Smoke Exposure: Past Smokeless Tobacco: Never Comments:Grew up in house fu ll of smokers but never smoked Alcohol Use Standard Drinks/Week Comments Yes 0 (1 standard drink = 0.6 oz pure alcohol) Only social drinker maybe a couplle times a month PHQ-2 Answer Date Recorded Patient Health Questionnaire-2 Score 2 08/09/2023 Comments No Sex and Gender Information Value [...] documented as of this encounter Care Teams Chocolate Packer Relationship Specialty Start Date End Date Charmaine Cyr NP [address] [place] [address] PCP - General NURSE PRACTITIONER 07/25/20 documented as of this encounter
--- OUTSIDE RECORDS SUMMARY | 2024-09-21 16:58 | XMS_ITS | Encounter Summary ---
Author Organization [facility] Address [address] [place] [address] Care Team Providers Care Auto Polisher Name Role Phone Charmaine Cyr DIE MAKER APPRENTICE Primary Care Provider [phone] Encounter Details Date Type Department Care Team (Late st Contact Info) Description 08/13/2023 [employer] Message [facility] [address] [place] [address] [place], [facility] Provider Patient Amendment Request Social History Tobacco Use Types Packs/Day Years [...] documented as of this encounter Care Teams Auto Polisher Relationship Specialty Start Date End Date Charmaine Cyr, DIE MAKER APPRENTICE [address] [place], [place] [id number] PCP - General NURSE PRACTITIONER 3/4/21 documented as of this encounter
[2024-09-21 17:02] VITALS: BP 97/59; PULSE 84; RESP 18; TEMP 36.9; O2SAT 98
--- NOTE | 2024-09-21 17:11 | ED.URI ---
HPI - URI/Sore Throat General Chief Complaint: Upper Respiratory Infection Stated Complaint: sore throat Time Seen by Provider: 09/21/24 17:05 Source: patient Mode of arrival: ambulatory Limitations: no limitations History of Present Illness HPI Narrative: This is a 49 year old female patient who arrives to [facility] with 1 day history of sore throat, chills, malaise. She reports left side of throat is very painful when she swallows, decreased oral intake today, unable to eat food and discomfort when drinking. No stridor. Received a call today that her grandson's mother tested positive for strep throat today and the grandson was with this patient over the weekend. MD elicited complaint: sore throat and other (left ear pain) Onset (ago): hour(s) (14) Consistency: constant Severity: moderate Pain scale (0-10): 7 Able to tolerate fluids by mouth: Yes (Painful on left side to swallow, not able to eat today) Relieving factors: NSAID Associated symptoms: chills, sore throat, ear pain (left) and other (malaise) Treatments prior to arrival: ibuprofen Related Data Home Medications ?Medication ?Instructions ?Recorded ?Confirmed ?Last Taken ?Type valacyclovir 1 gram tablet 1,000 mg PO DAILY 09/29/22 09/29/22 Unknown History atorvastatin 20 mg tablet mg 09/21/24 Unknown History omeprazole 20 mg capsule,delayed mg 09/21/24 Unknown History release Allergies Allergy/AdvReac Type Severity Reaction Status Date / Time naproxen AdvReac Intermediate shortness Verified 09/21/24 17:03 of breath Review of Systems Review of Systems: All systems reviewed & are unremarkable except as noted in HPI and below PMFSH Past Medical History Medical History Psoriasis Eczema Exam Narrative: GENERAL: Well-appearing, well-nourished, and in no acute distress. HEAD: Normocephalic, atraumatic. ENT:? Mucous membranes moist. Posterior pharynx erythema with exudate, midline uvula, minor left anterior cervical lymphadenopathy, no thyromegaly CHEST: Clear to auscultation.? No respiratory distress. HEART: Regular rate and rhythm. ? Normal peripheral pulses. SKIN: Warm dry normal color NEURO: Alert and oriented x3. PSYCH: Normal mood and affect Course Course Level of Care: Express Care Visit Vital Signs Vital signs: Vital Signs Temperature 36.9 C 09/21/24 17:02 Pulse Rate 84 09/21/24 17:02 Respiratory Rate 18 09/21/24 17:02 Blood Pressure 97/59 L 09/21/24 17:02 Pulse Oximetry 98 09/21/24 17:02 Oxygen Delivery Room Air 09/21/24 17:02 Temperature 36.9 C 09/21/24 17:02 Pulse Rate 84 09/21/24 17:02 Respiratory Rate 18 09/21/24 17:02 Blood Pressure 97/59 L 09/21/24 17:02 Pulse Oximetry 98 09/21/24 17:02 Oxygen Delivery Room Air 09/21/24 17:02 MDM - URI/Sore Throat MDM Narrative Medical decision making narrative: No stridor, no deviation to uvula, no airway obstruction noted. Strep test was positive. Initiated treatment in office with 60 mg prednisone and prescription for amoxicillin and Medrol Dosepack sent to preferred pharmacy. Patient instructed to work to keep hydrated. Precautions discussed that would require treatment in ER including stridor, inability to swallow fluids, severe swelling, etc. Differential Diagnosis Differential diagnosis: Likely upper respiratory infection, otitis media, viral infection and pharyngitis Medical Records Attestation: I reviewed the patient's medical records. Medical records narrative: Reviewed prior visit for Otitis externa of left ear, only allergy is naproxen. Patient is current with prescriptions for omeprazole, atorvastatin and valacyclovir, no history of Diabetes. Lab Data Attestation: I reviewed the patient's lab results. Lab results narrative: Strep swab positive Labs: Lab Results 09/21/24 Range/Units 17:33 POC Grp A Strep Screen Positive (Negative) Discharge Plan Discharge Clinical Impression: Acute infective pharyngitis due to Streptococcus species Patient Disposition: Home Condition: Stable Instructions: Antibiotic Form, Strep Throat (ED) Additional Instructions: Gargle with warm salt water for drying/drainage improvement Take steroids and antibiotics as prescribed. Take steroids in the morning to minimize sleep disruption After treatment make sure to change your toothbrush as it is definitely possible to get strep again very soon after completing treatment. Patient Language: Serbian Prescriptions: New amoxicillin 500 mg capsule 500 mg PO TID Qty: 30 0RF methylprednisolone [Medrol (Sotero)] 4 mg tablets,dose pack See Rx Instructions .ROUTE .COMPLEX Qty: 21 0RF Rx Instructions: for 6 days No Action valacyclovir 1 gram tablet 1,000 mg PO DAILY atorvastatin 20 mg tablet omeprazole 20 mg capsule,delayed release(/EC) Follow-up/Referrals: Klarissa,NIKKIE Omer [Primary Care Provider] - Time of Disposition: 17:29
[2024-09-21] MEDS: predniSONE 20 MG TABLET 60 MG PO (17:23)
[2024-09-21 17:35] LABS: EDSTREPNEGPOS1 Positive (Negative)
== END 2024-09-21 17:32 | disposition home or self-care (01) ==
PROVIDERS: Emergency Provider Nurse Practitioner; PCP Nurse Practitioner
DX: J02.0 Streptococcal pharyngitis (principal); Z79.899 Other long term (current) drug therapy
CPT/HCPCS: 87880; 99213; G0463; J7512